=== PATIENT | male | born 1940 | race Caucasian/White ===

== ENCOUNTER 2023-02-17 14:04 | Outpatient (CLI) | payer MEDICARE, OTHER | END 2023-02-17 14:05 | disposition home or self-care (01) | LOC: BICMAMMO 14:04 | PROVIDERS: ATTEND Neurological Surgery | DX: Z13.820 Encounter for screening for osteoporosis (principal); M48.56XA Collapsed vertebra, not elsewhere classified, lumbar region, initial encounter for fracture; M54.50 Low back pain, unspecified; M47.816 Spondylosis without myelopathy or radiculopathy, lumbar region; M51.36 Other intervertebral disc degeneration, lumbar region; M89.38 Hypertrophy of bone, other site; M85.851 Other specified disorders of bone density and structure, right thigh; M85.852 Other specified disorders of bone density and structure, left thigh | CPT/HCPCS: 72148; 77080 ==